=== PATIENT | female | born 1965 | race Caucasian/White ===

== ENCOUNTER 2017-03-22 08:59 | Emergency (ER) | payer OTHER ==
[~2017-03-22] VITALS: Ht 170.2 cm; Wt 105.4 kg
[~2017-03-22 08:59] MED LIST: CHERATUSSIN AC473 ML PO; NEXIUM40 MG
[2017-03-22 09:38] LABS: HEMATOCRIT 40.7 % (36.0-46.0); MCH 28.4 PG (29.0-34.0); MCHC 32.4 G/DL (30.0-36.0); MCV 87.7 FL (83-99); MEAN PLAT.VOLUME 10.8 uM^3 (9.5-12.4); PLATELET COUNT 177 K/uL (156-360); RBC DIS.WIDTH-CV 12.8 % (11.8-14.6); RBC DIS.WIDTH-SD 40.6 % (39-53); RED BLOOD COUNT 4.64 M/uL (3.80-5.20); WHITE BLOOD COUNT 4.8 K/uL (4.1-10.2)
[2017-03-22 09:45] LABS: CHLORIDE 105 mEq/L (99-109); POTASSIUM 4.1 mEq/L (3.7-5.4); SODIUM 139 mEq/L (136-147)
[2017-03-22 09:47] LABS: ADD MIUA? YES; BILIRUBIN NEGATIVE; BLOOD NEGATIVE; COLOR YELLOW ((YELLOW)); GLUCOSE (STRIP) NEGATIVE; KETONES NEGATIVE; LEUKOCYTES MODERATE; NITRITE NEGATIVE; PROTEIN (STRIP) NEGATIVE; SPECIFIC GRAVITY 1.018 (1.000-1.030); UROBILINOGEN 0.2 MG/DL (0.2-1.0)
[2017-03-22 09:47] LABS: GLUCOSE 94 mg/dL (70-99)
[2017-03-22 09:48] LABS: ANION GAP 6 MEQ/L (2-14)
[2017-03-22 09:51] LABS: GFR ESTIMATE (CALCULATED) > 59 mL/min/
[2017-03-22 09:52] LABS: UREA NITROGEN (BUN) 12 mg/dL (9-23)
[2017-03-22 09:58] LABS: BACTERIA NONE SEEN /HPF; EPITHELIAL CELLS 2+ /HPF; MUCUS TRACE /LPF
[2017-03-22 10:00] VITALS: BP 121/77
[2017-03-22] MEDS ORDERED: KEFLEX500 MG PO (10:54)
[2017-03-22] MEDS ORDERED: FLEXERIL10 MG PO (10:54)
[2017-03-22] MEDS ORDERED: NAPROSYN500 MG PO (10:54)
== END 2017-03-22 11:13 | disposition home or self-care (01) ==
LOC: EME 08:59
PROVIDERS: Nurse Practitioner Family
DX: M54.42 Lumbago with sciatica, left side (principal); M54.41 Lumbago with sciatica, right side; N39.0 Urinary tract infection, site not specified
CPT/HCPCS: 80048; 81003; 85027; 99281; 99284; J1885

== ENCOUNTER 2017-05-04 10:34 | Emergency (ER) | payer OTHER ==
[~2017-05-04] VITALS: Ht 170.2 cm; Wt 103.5 kg
[~2017-05-04 10:34] MED LIST changes: +FLEXERIL10 MG PO; +KEFLEX500 MG PO; +NAPROSYN500 MG PO
[2017-05-04 13:26] LABS: HEMATOCRIT 39.1 % (36.0-46.0); MCH 28.6 PG (29.0-34.0); MCHC 32.7 G/DL (30.0-36.0); MCV 87.3 FL (83-99); MEAN PLAT.VOLUME 10.8 uM^3 (9.5-12.4); PLATELET COUNT 179 K/uL (156-360); RBC DIS.WIDTH-CV 12.3 % (11.8-14.6); RBC DIS.WIDTH-SD 39.4 % (39-53); RED BLOOD COUNT 4.48 M/uL (3.80-5.20); WHITE BLOOD COUNT 5.6 K/uL (4.1-10.2)
[2017-05-04 13:35] LABS: CHLORIDE 106 mEq/L (99-109); POTASSIUM 4.5 mEq/L (3.7-5.4); SODIUM 140 mEq/L (136-147)
[2017-05-04 13:37] LABS: GLUCOSE 89 mg/dL (70-99)
[2017-05-04 13:39] LABS: ANION GAP 7 MEQ/L (2-14)
[2017-05-04 13:41] LABS: GFR ESTIMATE (CALCULATED) > 59 mL/min/
[2017-05-04 13:42] LABS: UREA NITROGEN (BUN) 10 mg/dL (9-23)
[2017-05-04] MEDS ORDERED: KEFLEX500 MG PO (14:21)
[2017-05-04] MEDS ORDERED: VENTOLIN HFA18 GM IH (14:21)
[2017-05-04 14:27] VITALS: BP 151/88
== END 2017-05-04 14:28 | disposition home or self-care (01) ==
LOC: EME 10:34
PROVIDERS: Physician Assistant
DX: J45.909 Unspecified asthma, uncomplicated (principal); S80.12XA Contusion of left lower leg, initial encounter; W22.8XXA Striking against or struck by other objects, initial encounter; Y93.89 Activity, other specified
CPT/HCPCS: 71020; 73590; 80048; 85027; 94640; 99281; 99283